=== PATIENT | female | born 1985 | race African-American/Black ===

== ENCOUNTER 2018-11-29 18:20 | Emergency (ER) | payer OTHER, SELFPAY ==
[~2018-11-29] VITALS: Ht 154.9 cm; Wt 99.3 kg
--- NOTE | 2018-11-29 18:54 | Emergency Room Report ---
History of Present Illness General Chief Complaint: Complications Source: Patient (Sharona Ireland ) Present Illness HPI Patient presents with complaints of vaginal spotting earlier today patient is approximately 9 weeks according to her last menstrual cycle she is a G1 , P0 also had some minimal cramping to the left lower abdomen Denies any vomiting diarrhea Patient did have recent sexual contact and soon after that noticed a spotting Denies any dysuria frequency reports that she is being treated for a UTI for the past 2 days (Sharona Ireland DO) Allergies: Coded Allergies: No Known Allergies (Unverified , 11/29/18) Patient History Past Medical History: see triage record Pertinent Family History: none Now: Yes - 9 weeks 2 days Reviewed Nursing Documentation: PMH: Agreed; PSxH: Agreed (Sharona Ireland DO) Nursing Documentation-PMH Past Medical History: No History, Except For (Sharona Ireland DO) Review of Systems All Other Systems: negative except mentioned in HPI (Sharona Ireland DO) Physical Exam Vital Signs Date Time Temp Pulse Resp B/P (MAP) Pulse Ox O2 Delivery O2 Flow Rate FiO2 11/29/18 18:29 99.1 91 21 117/73 (88) 98 Room Air Sp02 EP Interpretation: reviewed, normal General Appearance: well appearing, no apparent distress Head: normocephalic, atraumatic Eyes: bilateral eye PERRL, bilateral eye EOMI ENT: hearing grossly normal, normal pharynx, TMs + canals normal, uvula midline Neck: full range of motion, supple, no meningismus, no bony tend Respiratory: lungs clear, normal breath sounds, no rhonchi, no respiratory distress, no retraction, no accessory muscle use Cardiovascular #1: normal peripheral pulses, regular rate, rhythm, no edema, no gallop, no JVD, no murmur Gastrointestinal: normal bowel sounds, non tender, soft, no mass, no organomegaly, non-distended, no guarding, no hernia, no pulsatile mass, no rebound Genitourinary: no CVA tenderness Musculoskeletal: normal inspection Neurologic: oriented x3, responsive, strategy lead III-XII nml as tested, motor strength/ tone normal, sensory intact Psychiatric: mood/affect normal Skin: no rash Lymphatic: normal inspection, no adenopathy (Sharona Ireland DO) Medical Decision Making Diagnostic Impression: Primary Impression: Threatened ER Course Patient was more endorsed to me for vaginal bleeding during . A repeat quantitative beta-hCG showed quant 29,000. I previous test was likely a lab error. Patient appears to be stable for discharge. She was advised to return if she began having worsening bleeding severe pain or other concerns. Patient was advised to follow-up with her [employer] for recheck Labs Test 11/29/18 19:11 11/29/18 20:15 White Blood Count 11.9 K/UL (4.8-10.8) Red Blood Count 4.02 M/UL (4.20-5.40) Hemoglobin 13.2 G/DL (12.0-16.0) Hematocrit 39.0 % (37.0-47.0) Mean Corpuscular Volume 97 FL (80-99) Mean Corpuscular Hemoglobin 32.7 PG (27.0-31.0) Mean Corpuscular Hemoglobin Concent 33.7 G/DL (32.0-36.0) Red Cell Distribution Width 11.7 % (11.6-14.8) Platelet Count 287 K/UL (150-450) Mean Platelet Volume 6.1 FL (6.5-10.1) Neutrophils (%) (Auto) 60.2 % (45.0-75.0) Lymphocytes (%) (Auto) 31.4 % (20.0-45.0) Monocytes (%) (Auto) 6.1 % (1.0-10.0) Eosinophils (%) (Auto) 1.0 % (0.0-3.0) Basophils (%) (Auto) 1.3 % (0.0-2.0) Sodium Level 134 MMOL/L (136-145) Potassium Level 2.9 MMOL/L (3.5-5.1) Chloride Level 102 MMOL/L (98-107) Carbon Dioxide Level 26 MMOL/L (21-32) Anion Gap 7 mmol/L (5-15) Blood Urea Nitrogen 10 mg/dL (7-18) Creatinine 0.6 MG/DL (0.55-1.30) Estimat Glomerular Filtration Rate > 60 mL/min (>60) Glucose Level 103 MG/DL (74-106) Calcium Level 9.4 MG/DL (8.5-10.1) Total Bilirubin 0.2 MG/DL (0.2-1.0) Aspartate Amino Transf (AST/SGOT) 13 U/L (15-37) Alanine Aminotransferase (ALT/SGPT) 23 U/L (12-78) Alkaline Phosphatase 52 U/L (46-116) Total Protein 6.8 G/DL (6.4-8.2) Albumin 3.6 G/DL (3.4-5.0) Globulin 3.2 g/dL Albumin/Globulin Ratio 1.1 (1.0-2.7) Lipase 239 U/L (73-393) Human Chorionic Gonadotropin, Quant 00208 mIU/mL (1-6) (Amol Waddell MD) Last Vital Signs Date Time Temp Pulse Resp B/P (MAP) Pulse Ox O2 Delivery O2 Flow Rate FiO2 11/29/18 18:29 99.1 91 21 117/73 (88) 98 Room Air (Sharona Ireland DO) Status: improved (Amol Waddell MD) Disposition: HOME, SELF-CARE Condition: Stable Sharona Ireland DO Nov 29, 2018 18:54 Amol Waddell MD Nov 29, 2018 21:40
[2018-11-29 19:20] LABS: BASOPHILS % (AUTO) 1.3 % (0.0-2.0); HEMOGLOBIN 13.2 G/DL (12.0-16.0); LYMPHOCYTES % (AUTO) 31.4 % (20.0-45.0); MEAN CORPUSCULAR VOLUME 97 FL (80-99); MONOCYTES % (AUTO) 6.1 % (1.0-10.0); NEUTROPHILS % (AUTO) 60.2 % (45.0-75.0); PLATELET COUNT 287 K/UL (150-450); RED BLOOD COUNT 4.02 M/UL (4.20-5.40); RED CELL DISTRIBUTION WIDTH 11.7 % (11.6-14.8); WHITE BLOOD COUNT 11.9 K/UL (4.8-10.8)
[2018-11-29 19:39] LABS: ANION GAP 7 mmol/L (5-15); BLOOD UREA NITROGEN 10 mg/dL (7-18); CALCIUM 9.4 MG/DL (8.5-10.1); CARBON DIOXIDE 26 MMOL/L (21-32); CHLORIDE 102 MMOL/L (98-107); CREATININE 0.6 MG/DL (0.55-1.30); POTASSIUM 2.9 MMOL/L (3.5-5.1); SODIUM 134 MMOL/L (136-145)
[2018-11-29 19:43] LABS: ALANINE AMINOTRANSFERASE 23 U/L (12-78); ALBUMIN 3.6 G/DL (3.4-5.0); ALBUMIN/GLOBULIN RATIO 1.1 (1.0-2.7); ALKALINE PHOSPHATASE 52 U/L (46-116); ASPARTATE AMINO TRANSFERASE 13 U/L (15-37); BILIRUBIN,TOTAL 0.2 MG/DL (0.2-1.0)
--- NOTE | 2018-11-29 20:18 | Diagnostic Imaging Report ---
Indication: Abdominal pelvic pain Technique: Grayscale and duplex Doppler imaging of the pelvis performed utilizing a transabdominal scan and endovaginal scan. Comparison: None Findings: Single living IUP with the viability demonstrated. heart rate 175 bpm. Difficult as measured the pole on this examination and gestational age is based on mean sac diameter. Yolk sac is noted. Both ovaries are seen and appear normal in size contour and echogenicity. Left ovary measures 3.7 x 1.4 x 2.2 cm. Right ovary 5 x 1.5 x 2.7 cm. There is dopplerable blood flow within both ovaries. There is no free fluid. Cervical nabothian cysts noted. IMPRESSION: Single living IUP gestational age estimated at 6 weeks 6 days +/- 2 weeks. pole is not well seen on this examination. Uncertain if this is a technical issue or due to the early IUP age. Recommend follow-up ultrasound.
[2018-11-29 21:40] VITALS: BP 117/73
== END 2018-11-29 21:40 | disposition home or self-care (01) ==
LOC: EMR 20:33
DX: O20.0 Threatened abortion (principal); Z3A.09 9 weeks gestation of pregnancy
CPT/HCPCS: 36415; 76801; 76830; 80053; 83690; 84702; 85025; 86850; 86900; 86901; 96360; 99284